=== PATIENT | female | born 1970 | race Caucasian/White ===

== ENCOUNTER 2018-10-23 18:41 | Emergency (ER) | payer BC ==
--- NOTE | 2018-10-23 20:12 | CRLCR ---
INDICATION: Left foot pain TECHNIQUE: Three-view left foot COMPARISON: None FINDINGS: Three views of the left foot reveal changes o healing subacute osteotomy of the proximal phalanx of the left great toe. F osteotomy involving the left 1st metatarsal bone. Alignment appears intact. Changes of bunionectomy are also present. The most distal screw has backed out 8 millimeters and is indenting the soft tissues of the dorsum of the foot. A cerclage wire transfixes an osteotomy of the proximal phalanx of the left great toe. IMPRESSION: 1. Status post osteotomy and bunionectomy of the left 1st metatarsal bone. 2. The distal screw has backed out approximately 8 millimeters(lateral view). 3. Uncomplicated subacute/healing osteotomy of the proximal phalanx of the left great toe. Dictated by Pranav Price MD @ Oct 23 2018 8:02PM Signed by Dr. Pranav Price @ Oct 23 2018 8:12PM
--- NOTE | 2018-10-23 20:14 | EDM.PDOC ---
ED HPI GENERAL MEDICAL PROBLEM - General Chief Complaint: Lower Extremity Injury/Pain Stated Complaint: LEFT FOOT PAIN/BUNIONECTOMY Time Seen by Provider: 10/23/18 19:33 Source of Information: Reports: Patient History Limitations: Reports: No Limitations - History of Present Illness INITIAL COMMENTS - FREE TEXT/NARRATIVE: This lady had bunion surgery to her left foot back in June. Today her left foot the first metatarsal is been hurting all day long. Now she notices there is a lump on the top of the distal first metatarsal. She wonders if the screw might have come loose. Her surgery was done in [place] left [place] Pain Score (Numeric/FACES): 3 - Related Data Allergies Allergy/AdvReac Type Severity Reaction Status Date / Time amoxicillin [From Augmentin] Allergy Nausea and Verified 10/23/18 19:08 Vomiting azithromycin Allergy Nausea and Verified 10/23/18 19:08 Vomiting cefuroxime [From Ceftin] Allergy Nausea and Verified 10/23/18 19:08 Vomiting clavulanic acid Allergy Nausea and Verified 10/23/18 19:08 [From Augmentin] Vomiting shellfish derived Allergy Anaphylactic Verified 10/23/18 19:08 Shock Home Meds: Home Meds Cetirizine HCl [Zyrtec] 10 mg PO BID 10/23/18 [History] Past Medical History HEENT History: Reports: Allergic Rhinitis Gastrointestinal History: Reports: None Genitourinary History: Reports: UTI, Recurrent [employer] History: Reports: , Spontaneous - Past Surgical History GI Surgical History: Reports: Cholecystectomy Female Surgical History: Reports: Hysterectomy Neurological Surgical History: Reports: Lumbar Spine Musculoskeletal Surgical History: Reports: Other (See Below) Other Musculoskeletal Surgeries/Procedures:: left [place]unionectomy 06[place] Social & Family History - Tobacco Use Smoking Status *Q: Never Smoker - Caffeine Use Caffeine Use: Reports: Coffee - Recreational Drug Use Recreational Drug Use: No Review of Systems - Review of Systems Review Of Systems: ROS reveals no pertinent complaints other than HPI. ED EXAM, GENERAL - Physical Exam Exam: See Below Exam Limited By: No Limitations General Appearance: Alert, WD/WN Extremities: Other (There is a well-healed scar over the first metatarsal of the left foot. There does seem to be a firm elevation to the distal half of the metatarsal but does not feel like a screw however it's just feels like bone. It is mildly tender.) Skin Exam: Warm, Dry Course - Vital Signs Last Recorded V/S: Last Vital Signs Temp 36.8 C 10/23/18 19:13 Pulse 66 10/23/18 19:13 Resp 18 10/23/18 19:13 BP 130/82 10/23/18 19:13 Pulse Ox 97 10/23/18 19:13 - Orders/Labs/Meds Orders: Active Orders 24 hr Category Date Time Status Foot Comp Min 3V Lt [CR] Stat Exams 10/23/18 19:33 Taken - Radiology Interpretation Free Text/Narrative:: X-ray does indicate a screw which appears to be protruding about 1-1/2 cm through the upper surface of the distal first metatarsal. Departure - Departure Time of Disposition: 20:13 Disposition: Home, Self-Care 01 Condition: Fair Clinical Impression: Loosening of orthopedic screw - Discharge Information Referrals: Ayde Kennedy RN [Primary Care Provider] - Additional Instructions: Call the orthopedic surgeon in the morning to arrange follow-up. - My Orders Last 24 Hours: My Active Orders 10/23/18 19:33 Foot Comp Min 3V Lt [CR] Stat - Assessment/Plan Last 24 Hours: My Active Orders 10/23/18 19:33 Foot Comp Min 3V Lt [CR] Stat
== END 2018-10-23 20:57 | disposition home or self-care (01) ==
LOC: JP.ED 18:41
DX: Z46.89 Encounter for fitting and adjustment of other specified devices (principal); Z79.899 Other long term (current) drug therapy; Z88.1 Allergy status to other antibiotic agents; Z91.013 Allergy to seafood
CPT/HCPCS: 73630-LT; 99283-25

== ENCOUNTER 2022-05-15 11:37 | Emergency (ER) | payer OTHER ==
[2022-05-15] MEDS ORDERED: LORazepam 2 MG/ML SDV IVPUSH ONE (12:08)
[2022-05-15 12:28] LABS: TROPONIN I HIGH SENSITIVITY 6.9 pg/mL (<=60.3)
== END 2022-05-15 14:51 | disposition home or self-care (01) ==
LOC: JP.ED 11:37
DX: R07.89 Other chest pain (principal); Z88.0 Allergy status to penicillin; Z88.1 Allergy status to other antibiotic agents; Z91.013 Allergy to seafood
CPT/HCPCS: 36415; 71045; 80048; 84443; 84484; 85025; 93005; 96374; 99285; J2060